=== PATIENT | female | born 2000 | race Caucasian/White ===

== ENCOUNTER 2020-10-29 21:32 | Emergency (ER) | payer BC ==
[2020-10-29 22:22] LABS: Bilirubin Negative (Negative); Blood, Urine Small (Negative); Clarity Clear (Clear); Glucose, Urine (Dipstick) Negative (Negative); Ketone, Urine Negative (Negative); Leukocyte Negative (Negative); Nitrite Negative (Negative); Protein, Urine (Dipstick) Negative (Neg-Trace); Urobilinogen 0.2 mg/dL (Less than 2); pH, Urine 5.5 (5.0-9.0)
[2020-10-29 22:23] LABS: Specific Gravity, Urine 1.028 (1.002-1.036)
[2020-10-29 22:30] LABS: RBC/HPF 0-3 HPF (0-3); Yeast-Budding Rare HPF (None Seen)
== END 2020-10-29 23:18 | disposition home or self-care (01) ==
LOC: MADERS 21:32
DX: Z32.01 Encounter for pregnancy test, result positive (principal); O99.891 Other specified diseases and conditions complicating pregnancy; R35.0 Frequency of micturition
CPT/HCPCS: 81003; 81015; 84702; 99283

== ENCOUNTER 2020-12-01 16:16 | Outpatient (CLI) | payer BC ==
[2020-12-01 16:44] LABS: Hemoglobin 12.5 g/dL (12.0-16.0); Mean Corpuscular HGB CONC 30.9 g/dL (32.0-36.0); Mean Corpuscular Hemoglobin 26.6 pg (27.0-31.0); Mean Platelet Volume 6.9 fL (7.4-10.4); Platelet Count 364 thou/uL (130-400); RBC Distribution Width 14.7 % (11.5-14.5); Red Blood Cell (RBC) Count 4.69 mill/uL (4.20-5.40); White Blood Cell (WBC) Count 7.8 thou/uL (4.8-10.8)
== END 2020-12-01 16:17 | disposition home or self-care (01) ==
LOC: MADLAB 16:16
PROVIDERS: ATTEND Family Medicine
DX: D72.829 Elevated white blood cell count, unspecified (principal)
CPT/HCPCS: 36415; 85027

== ENCOUNTER 2021-09-06 07:44 | Emergency (ER) | payer BC ==
[2021-09-06] MEDS ORDERED: Ibuprofen 800 MG TAB ONE (08:12)
== END 2021-09-06 09:00 | disposition home or self-care (01) ==
LOC: MADERS 07:44
DX: B34.9 Viral infection, unspecified (principal); F17.290 Nicotine dependence, other tobacco product, uncomplicated
CPT/HCPCS: 87081; 87430; 87804; 99283

== ENCOUNTER 2021-09-08 20:37 | Emergency (ER) | payer BC, OTHER | END 2021-09-08 21:41 | disposition home or self-care (01) | LOC: MADERS 20:37 | DX: J06.9 Acute upper respiratory infection, unspecified (principal); L42 Pityriasis rosea; F17.290 Nicotine dependence, other tobacco product, uncomplicated; Z79.899 Other long term (current) drug therapy | CPT/HCPCS: 99283 ==